=== PATIENT | male | born 1980 | race African-American/Black ===

== ENCOUNTER 2017-06-05 19:09 | Emergency (ER) | payer BC ==
[~2017-06-05] VITALS: Ht 182.9 cm; Wt 76.7 kg
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
[2017-06-05] MEDS ORDERED: TDAP DIPH,PERTUSS,TET VAC/PF 0.5 ML DISP.SYRIN IM ONE ×2 (20:15→20:32)
[2017-06-05] MEDS ORDERED: NEOMY/BACITRA/POLYMYXIN B OINT UD PACKET TP ONE ×2 (20:15→20:43)
--- NOTE | 2017-06-05 20:34 | NUR ---
XRAY AT BEDSIDE
[2017-06-05] MEDS ORDERED: HYDROCODONE/APAP 10-325 MG TABLET ONE (20:43)
[2017-06-05] MEDS ORDERED: HYDROCODONE/APAP 10-325 MG TABLET PO ONE (20:45)
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
[2017-06-05 21:11] VITALS: BP 147/80
== END 2017-06-05 21:11 | disposition home or self-care (01) ==
LOC: ER 19:12
DX: S60.511A Abrasion of right hand, initial encounter (principal); S60.512A Abrasion of left hand, initial encounter; S80.212A Abrasion, left knee, initial encounter; V23.4XXA Motorcycle driver injured in collision with car, pick-up truck or van in traffic accident, initial encounter; Y93.89 Activity, other specified; Y92.410 Unspecified street and highway as the place of occurrence of the external cause; Y99.8 Other external cause status
CPT/HCPCS: 73120; 73130; 73560; 90715; A4663